=== PATIENT | male | born 1970 | race Two or more races ===

== ENCOUNTER 2017-01-21 17:05 | Emergency (ER) | payer MEDICAID ==
[~2017-01-21] VITALS: Ht 170.2 cm; Wt 75.7 kg
[2017-01-21 19:20] VITALS: BP 131/83
== END 2017-01-21 19:56 | disposition home or self-care (01) ==
LOC: ER 17:05
DX: R51 Headache (principal); R03.0 Elevated blood-pressure reading, without diagnosis of hypertension
CPT/HCPCS: 70450